=== PATIENT | female | born 1980 | race Caucasian/White ===

== ENCOUNTER 2018-04-17 19:37 | Emergency (ER) | payer MEDICARE, MEDICAID ==
[~2018-04-17] VITALS: Ht 154.9 cm; Wt 77.0 kg
[~2018-04-17 19:37] MED LIST: ONDA4TAB12 PO
[2018-04-17 19:54] VITALS: BP 125/70
[2018-04-17 20:13] LABS: BASOPHILS % (AUTO) 0.5 % (0-1); EOSINOPHILS # (AUTO) 0.2 X10'3 (0-0.9); EOSINOPHILS % (AUTO) 2.4 % (0-6); HEMATOCRIT 38.1 % (35.0-45.0); HEMOGLOBIN 13.1 g/dl (12.0-16.0); MEAN CORPUSCULAR HEMOGLOBIN 30.4 PG (27.0-31.0); MEAN CORPUSCULAR HGB CONC 34.3 % (33.0-36.5); MEAN CORPUSCULAR VOLUME 88.5 FL (78-98); MEAN PLATELET VOLUME 7.9 FL (7.4-10.4); MONOCYTES # (AUTO) 0.8 X10'3 (0-0.9); MONOCYTES % (AUTO) 10.1 % (2-12); NEUTROPHILS # (AUTO) 3.7 X10'3 (1.8-7.7); PLATELET COUNT 283 X10'3 (140-440); RED BLOOD COUNT 4.31 X10'6 (4.20-5.60); RED CELL DISTRIBUTION WIDTH 11.8 % (11.5-14.5); WHITE BLOOD COUNT 7.8 X10'3 (4.5-11.0)
[2018-04-17 20:19] LABS: CLARITY,URINE CLEAR (Clear); COLOR,URINE YELLOW (Yellow); GLUCOSE, URINE NEGATIVE (Neg); KETONES,URINE NEGATIVE (Neg); LEUKOCYTE ESTERASE ,URINE NEGATIVE (Neg); NITRITES, URINE NEGATIVE (Neg); OCCULT BLOOD,URINE NEGATIVE (Neg); PH,URINE 5.5 (4.8-8.0); PROTEIN,URINE NEGATIVE (Neg); UROBILINOGEN,URINE 0.2 E.U/dL (0.2-1.0)
[2018-04-17 20:20] LABS: URINE HCG NEGATIVE (NEG)
[2018-04-17 20:22] LABS: INR 0.9 INR; PROTHROMBIN TIME 9.5 SECONDS (9.0-12.0)
[2018-04-17 20:27] LABS: UA COLLECTION TYPE CLN CATCH MIDSTREAM
[2018-04-17 20:28] LABS: ALANINE AMINOTRANSFERASE 20 U/L (12-78); ALBUMIN 3.5 G/DL (3.4-5.0); ALBUMIN/GLOBULIN RATIO 0.9 (1.1-1.5); ALKALINE PHOSPHATASE 98 IU/L (46-116); ANION GAP 9 (8-16); ASPARTATE AMINO TRANSFERASE 18 U/L (10-37); BILIRUBIN,TOTAL 0.1 MG/DL (0.1-1.0); BLOOD UREA NITROGEN 16 MG/DL (7-18); BUN/CREATININE RATIO 19.3 (6.6-38.0); CALCIUM 8.9 MG/DL (8.5-10.1); CHLORIDE 106 MMOL/L (99-107); CREATININE 0.83 MG/DL (0.40-0.90); GLUCOSE 94 MG/DL (70-104); POTASSIUM 3.7 MMOL/L (3.5-5.1); SODIUM 142 MMOL/L (135-145); TOTAL CARBON DIOXIDE 27.5 MMOL/L (24-32); TOTAL PROTEIN 7.3 G/DL (6.4-8.2); eGFR 77 ML/MIN
== END 2018-04-17 20:52 | disposition home or self-care (01) ==
LOC: ER 19:38
DX: R10.30 Lower abdominal pain, unspecified (principal); Z88.8 Allergy status to other drugs, medicaments and biological substances; Z79.899 Other long term (current) drug therapy
CPT/HCPCS: 36415; 80053; 81003; 81025; 85025; 85610; 87210; 87491; 99284

== ENCOUNTER 2021-02-25 16:21 | Emergency (ER) | payer BC, MEDICAID ==
[~2021-02-25] VITALS: Ht 154.9 cm; Wt 84.1 kg
[2021-02-25] MEDS ORDERED: ampicillin/sulbac 3gm/NS 100ml 100 ML IV STA (20:19)
[2021-02-25] MEDS ORDERED: gentamicin inj 400 MG in normal saline 100ml IV soln 100 ML IV STA (20:19)
[2021-02-25] MEDS ORDERED: normal saline 1000ML IV soln IVB ONE (20:20)
[2021-02-25] MEDS ORDERED: probenecid 500mg tablet PO ONE (20:20)
[2021-02-25] MEDS ORDERED: gentamicin inj 300 MG in normal saline 100ml IV soln 100 ML IV STA (20:28)
[2021-02-25 20:51] LABS: BASOPHILS # (AUTO) 0.1 X10'3 (0-0.2); BASOPHILS % (AUTO) 0.5 % (0-1); EOSINOPHILS # (AUTO) 0.1 X10'3 (0-0.9); EOSINOPHILS % (AUTO) 0.6 % (0-6); HEMATOCRIT 38.3 % (35.0-45.0); HEMOGLOBIN 12.8 g/dl (12.0-16.0); LYMPHOCYTES # (AUTO) 2.7 X10'3 (1.1-4.8); LYMPHOCYTES % (AUTO) 17.6 % (21-51); MEAN CORPUSCULAR HEMOGLOBIN 29.9 PG (27.0-31.0); MEAN CORPUSCULAR HGB CONC 33.5 g/dL (33.0-36.5); MEAN CORPUSCULAR VOLUME 89.3 FL (78-98); MEAN PLATELET VOLUME 7.1 FL (7.4-10.4); MONOCYTES # (AUTO) 0.7 X10'3 (0-0.9); MONOCYTES % (AUTO) 4.9 % (2-12); NEUTROPHILS # (AUTO) 11.5 X10'3 (1.8-7.7); NEUTROPHILS % (AUTO) 76.4 % (42-75); PLATELET COUNT 264 X10'3 (140-440); RED BLOOD COUNT 4.29 X10'6 (4.20-5.60); RED CELL DISTRIBUTION WIDTH 12.7 % (11.5-14.5); WHITE BLOOD COUNT 15.1 X10'3 (4.5-11.0)
[2021-02-25 21:07] LABS: ALANINE AMINOTRANSFERASE 24 U/L (12-78); ALBUMIN 3.6 G/DL (3.4-5.0); ALBUMIN/GLOBULIN RATIO 0.8 (1.1-1.5); ALKALINE PHOSPHATASE 96 IU/L (46-116); ANION GAP 8 (8-16); ASPARTATE AMINO TRANSFERASE 14 U/L (10-37); BILIRUBIN,TOTAL 0.3 MG/DL (0.1-1.0); BLOOD UREA NITROGEN 8 MG/DL (7-18); CALCIUM 8.7 MG/DL (8.5-10.1); CHLORIDE 103 MMOL/L (99-107); CREATININE 0.89 MG/DL (0.40-0.90); GLUCOSE 95 MG/DL (70-104); POTASSIUM 3.9 MMOL/L (3.5-5.1); SODIUM 139 MMOL/L (135-145); TOTAL CARBON DIOXIDE 28.1 MMOL/L (24-32); TOTAL PROTEIN 7.9 G/DL (6.4-8.2); eGFR 70 ML/MIN
[2021-02-25] MEDS ORDERED: ketorolac trometh. 30mg/ml inj. IV ONE (21:15)
--- NOTE | 2021-02-25 22:29 | NUR ---
HAD CONVERSATION WITH DR STONER OVER PT'S TDAP IMMUNIZATION. ADVISED TO ORDER TDAP BOOSTER. ORDER PUT IN.
[2021-02-25] MEDS ORDERED: tetanus & diphtheria toxoid (Td) vaccine 0.5ml IMVAC ONE (22:35)
[2021-02-25] MEDS ORDERED: TETanus/Pertussis (Acell)/Diphther VAC/PF (Tdap-Adult) 0.5ml syringe IMVAC ONE (22:40)
--- NOTE | 2021-02-25 22:54 | NUR ---
TDAP VACCINE BOOSTER GIVEN. MED NOT ABLE TO SCAN. PRINTING EQUIPMENT MECHANIC APPRENTICE AND PHARMACY ADVISED TO CHART MANUALLY. TDAP GIVEN IN RIGHT DELTOID. LOT NUMBER [id number]. EXPIRATION 12/13/2022. PT GIVEN VACCINE EDUCATION AND PAMPHLET. PT VERBALIZED CONSENT.
[2021-02-25 23:22] VITALS: BP 121/75
== END 2021-02-25 22:39 | disposition home or self-care (01) ==
LOC: ER 16:22
DX: L03.114 Cellulitis of left upper limb (principal); F12.90 Cannabis use, unspecified, uncomplicated; Z72.89 Other problems related to lifestyle; Z88.8 Allergy status to other drugs, medicaments and biological substances; Z79.899 Other long term (current) drug therapy
CPT/HCPCS: 36415; 73090; 80053; 84145; 85025; 96361; 96365; 96368; 96375; 99284; J1580; J1885; J7030; 90715; 96367; J0295

== ENCOUNTER 2021-02-26 13:57 | Emergency (ER) | payer BC, MEDICAID ==
[~2021-02-26] VITALS: Ht 154.9 cm; Wt 81.8 kg
[2021-02-26 14:33] VITALS: BP 116/64
[2021-02-26] MEDS ORDERED: gentamicin inj 400 MG in normal saline 100ml IV soln 100 ML IV STA (15:16)
[2021-02-26] MEDS ORDERED: ampicillin/sulbac 3gm/NS 100ml 100 ML IV STA (15:16)
[2021-02-26] MEDS ORDERED: normal saline 1000ML IV soln IVB ONE (15:20)
[2021-02-26] MEDS ORDERED: morphine 4 MG/ML inj SYRINge IV ONE (15:45)
[2021-02-26] MEDS ORDERED: diphenhydrAMINE 50 mg/ml inj IV ONE (15:45)
[2021-02-26 15:54] LABS: BASOPHILS # (AUTO) 0.1 X10'3 (0-0.2); BASOPHILS % (AUTO) 0.5 % (0-1); EOSINOPHILS # (AUTO) 0.1 X10'3 (0-0.9); EOSINOPHILS % (AUTO) 1.1 % (0-6); HEMOGLOBIN 12.3 g/dl (12.0-16.0); LYMPHOCYTES # (AUTO) 2.2 X10'3 (1.1-4.8); LYMPHOCYTES % (AUTO) 20.8 % (21-51); MEAN CORPUSCULAR HEMOGLOBIN 30.1 PG (27.0-31.0); MEAN CORPUSCULAR HGB CONC 33.4 g/dL (33.0-36.5); MEAN CORPUSCULAR VOLUME 90.1 FL (78-98); MEAN PLATELET VOLUME 7.4 FL (7.4-10.4); MONOCYTES # (AUTO) 0.7 X10'3 (0-0.9); MONOCYTES % (AUTO) 6.4 % (2-12); NEUTROPHILS # (AUTO) 7.6 X10'3 (1.8-7.7); NEUTROPHILS % (AUTO) 71.2 % (42-75); PLATELET COUNT 272 X10'3 (140-440); RED CELL DISTRIBUTION WIDTH 13.3 % (11.5-14.5); WHITE BLOOD COUNT 10.7 X10'3 (4.5-11.0)
[2021-02-26] MEDS ORDERED: LIDOcaine 1% W/epiNEPHrine 1:200,000 10ml vial IJ ONE (16:45)
== END 2021-02-26 17:35 | disposition home or self-care (01) ==
LOC: ER 13:58
DX: L03.114 Cellulitis of left upper limb (principal); F15.90 Other stimulant use, unspecified, uncomplicated; Z72.89 Other problems related to lifestyle; Z88.8 Allergy status to other drugs, medicaments and biological substances; Z79.899 Other long term (current) drug therapy
CPT/HCPCS: 10060; 36415; 84145; 85025; 96374; 96375; 99284; J1200; J2270; J7030

== ENCOUNTER 2021-07-15 17:00 | Inpatient (IN) | payer BC, MEDICAID ==
[~2021-07-15] VITALS: Ht 154.9 cm; Wt 83.9 kg
[2021-07-15] MEDS ORDERED: acetaminophen 325mg tablet PO PRN ×2 (20:25)
[2021-07-15] MEDS ORDERED: magnesium hydroxide 30ml (MOM) UD suspension PO PRN (20:25)
[2021-07-15] MEDS ORDERED: loperamide 2mg capsule PO PRN (20:25)
[2021-07-15] MEDS ORDERED: mag hydrox/Alum hydrox/simeth 30ml oral suspension PO PRN (20:25)
[2021-07-15 20:30] VITALS: BP 139/63
[2021-07-15] MEDS ORDERED: PALI234D IM (21:14)
[2021-07-15] MEDS ORDERED: QUET-1 PO (21:14)
[2021-07-15] MEDS ORDERED: POTA-192 PO (21:19)
[2021-07-15] MEDS ORDERED: OSC500T PO (21:19)
[2021-07-15] MEDS ORDERED: quetiapine 100mg tablet PO SCH (21:34)
--- NOTE | 2021-07-16 00:18 | NUR ---
Admission Assesment: Esperanza Legal hold: 5150 Client on involuntary status for GD. Why are they here: Pt was transferred from [facility] after having mild rhabdomyolysis, and Hx of bipolar disorder and schizophrenia disorder. Presents for evaluation of abnormal behavior. Was brought into [facility] by sister who stated that pt was hearing voices, crying, and not talking acknowledges behavior and stated that it has been ongoing for 2-3 days. Pt not caring for self, or eating or drinking No provocation and similar to prior bipolar episodes. Transferred to [facility] on 07/15/21 and arrived on the unit at 20:30 to be placed on 5150 hold for GD. Pt cooperative upon initial greeting, Pt took shower. After shower pt stated that she had in the past tried to hurt herself twice, but has not felt that way recently. Pt also had no plans to harm self or others. Pt stsaed she thinks her medications are off and that she can feel better soon.Pt took Seroquel and went to bed.
[2021-07-16 07:31] VITALS: BP 132/78
[2021-07-16] MEDS ORDERED: calcium carbonate 500mg tablet PO SCH (08:00)
[2021-07-16] MEDS ORDERED: potassium Cl 20 mEq SR tablet PO SCH (08:00)
[2021-07-16 08:23] LABS: HEMOGLOBIN A1C 5.5 % (4.5-6.2)
[2021-07-16 08:27] LABS: CHOL/HDL RATIO 3.3 (0.00-4.99); CHOLESTEROL 131 MG/DL (0-200); HDL CHOLESTEROL 40 MG/DL (35-60); LDL CHOLESTEROL 76 MG/DL (50-100); TRIGLYCERIDES 102 MG/DL (20-135)
--- NOTE | 2021-07-16 10:09 | NUR ---
Malnutrition consult: Pt unsure of wt loss though with decreased appetite per malnutrition risk screen with RN. Current scaled wt is +2.1 kg from 02/26 per EMR. Pt on a regular diet documented with 100% PO intake first meal. No documented edema or decrease in muscle strength. Pt currently lacks a minimum of two criteria for malnutrition. Will continue to follow. Addendum: 07/16/21 at [address] Amended: Links added.
--- NOTE | 2021-07-16 14:21 | NUR ---
Nursing Progress Note: Legal hold: 5150 Client on involuntary status for GD Report received from nurse Bright RN with use of SBAR. Why are they here: Pt was transferred from [facility] after having mild rhabdomyolysis, and Hx of bipolar disorder and schizophrenia disorder. Presents for evaluation of abnormal behavior. Was brought into [facility] by sister who stated that pt was hearing voices, crying, and not talking acknowledges behavior and stated that it has been ongoing for 2-3 days. Pt not caring for self, or eating or drinking. Pt's tox screen was positive for methamphetamines. Pt transferred to [facility] on 07/15/21 and arrived on the unit at 20:30 on 5150 hold for GD. Pt stated she thinks her medications are off and that she can feel better soon. Assessment What has happened this shift: Pt was up for breakfast in the dining room. Pt returned to bed afterwards. Pt c/o 4/10 general pain this morning and was given PRN Tylenol 650 mg at 0758 with some effect. Pt c/o feeling like she has a sinus infection and being congested. She reports that when she blows her nose it's yellow. Pt is irritable. Pt reports, "I feel like crap." Asked pt if she meant physically or mentally or both. Pt replied, "both!" Pt rated her depression at a 10/10. When asked about SI, pt replied, "maybe." When asked if she had thought about a plan of how she would hurt herself she replied, "No...I don't know...no." When asked about AH, pt reported sometimes. When asked if she had heard any voices today she stated, "well I heard D----'s voice and she's not my roommate." Reality orientation provided that D---- actually is her roommate. Pt replied, "oh." When asked about VH, pt replied, "I don't know, I haven't really been out of this bed." Collected and sent MRSA swab as this was endorsed by [facility] shift to day shift to collect. Upon reviewing pt's paper chart. This RN noted that pt had a positive Covid PCR test dated yesterday 07/15/21 at [facility]. Notified band shover of pt's symptoms and positive test result. Further review of [facility] documentation revealed a sentence reporting that pt had tested positive for Covid-19 at [facility] on 06/23/21. Evidently this was per the patient's report. Upon further investigation, it was determined through public michelle that her test result on 06/23/21 was actually negative. The director, the nursing supervisor quilting, the doctor, and the infection control nurse notified of the situation. Pt was moved to a private room and placed on respiratory isolation precautions, an isolation cart was placed outside her room. Pt wore a mask during the changing of her room. Her old room was disinfected by EVS. A PAPR was acquired for [facility] staff to share. Pt was afebrile this morning, her lungs were clear. VS: 98.6 temporal, 96, 17, 132/78, and 96% RA. S/I, H/I: Pt denies HI, evasive/wishy-washy in her response to SI questions. A/VH: Pt denies Sleep:Pt slept 7.25 hours last night per [facility] shift report. ADL's: Independent Group attendance: No Were meds taken: Only K-Dur and Oscal scheduled this morning. Any med S/E: N/A. Mental Status Exam Appearance: Fair skinned woman with freckles and long light brown hair dressed in unit scrubs. Eye contact: Fair Behavior: Cooperative, mostly isolative to self. Speech: Clear, audible, normal rate & rhythm. Mood: Irritable, depressed. Affect: Irritable Thought process: Difficulty focusing, mild disorganization. Thought Content: She feels like crap. Cognition: A/O X 3 Insight: Poor Judgment: Poor Interventions PRN's used: None Therapeutic interventions: 1:1 assessment, establishment of rapport, therapeutic communication, active listening, ensured contract for safety, initiated isolation precautions for Covid-19, educated pt to remain in her room, provided encouragement and positive reinforcement. Restraints/seclusion/emergency medication: N/A Justification of Continued Inpatient Treatment: Pt required crisis interruption and stabilization as well as medication management and monitoring in a safe and therapeutic environment until stable.
--- NOTE | 2021-07-16 15:18 | NUR ---
DISCHARGE PLAN Met with Esperanza to discuss her going home since she has Covid and is symptomatic. She reported she would like to go home. She denied any current SI or HI. She was alert and oriented. Speech was coherent and absent of any obvious delusions or paranoia. After a couple phone calls was able to speak to her , Tunde (ph# [phone]). Apprised him of the situation and he reported he can come pick her up so she can quarantine at home. He reported feeling comfortable bringing her home. Encouraged him to bring her back to the ER if psychotic symptoms persist or re-present. Scheduled follow up at [facility] for 07/30/21. Called Tunde back and informed him of follow up and that the nursing staff will call him when Esperanza is ready for discharge. Informed Esperanza of this as well and she was agreeable to the plan. BHAVYA Major
[2021-07-16] MEDS ORDERED: paliperidone palmitate inj 234 MG/1.5 ML SYRINGE IM ONE (15:50)
[2021-07-16] MEDS ORDERED: paliperidone palmitate inj 234 MG/1.5 ML SYRINGE IM SCH (15:51)
--- NOTE | 2021-07-16 17:27 | NUR ---
Pt was given Invega Sustenna 243 mg IM injection by the transmitter engineer in charge. The plan is for pt to discharge home this evening.
--- NOTE | 2021-07-16 19:45 | NUR ---
Pt discharged at this time to care of , discharge instructions reviewed including medications, and follow up with [facility] on 07/30/21, verbalized understanding. Also instructed him about pts positive Covid test and symptoms and s/s to watch for and when to seek medical attention. All patients belongings were returned and pt was walked off the unit wearing an N95 mask. Pt remained tearful and was reporting having a hard time with her voices and feeling scared. I tried to reassure patient and told her that she did receive her Invega shot today which should help with her voices and if she continues to have issues to contact [facility]. and patient verbalized understanding.
== END 2021-07-16 19:45 | disposition home or self-care (01) | DRG 885 ==
LOC: ADULT MH 17:00
PROVIDERS: ADMIT Psychiatry & Neurology Psychiatry; ATTEND Psychiatry & Neurology Psychiatry
DX: F25.9 Schizoaffective disorder, unspecified (principal); F32.A Depression, unspecified; F43.12 Post-traumatic stress disorder, chronic; F15.10 Other stimulant abuse, uncomplicated; Z91.14 Patient's other noncompliance with medication regimen; Z91.410 Personal history of adult physical and sexual abuse; Z91.51 Personal history of suicidal behavior; Z88.8 Allergy status to other drugs, medicaments and biological substances; Z56.0 Unemployment, unspecified; Z79.899 Other long term (current) drug therapy
CPT/HCPCS: 36415; 80061; 83036; 87081

== ENCOUNTER 2021-07-21 09:57 | Inpatient (IN) | payer BC, MEDICAID ==
[~2021-07-21] VITALS: Ht 154.9 cm; Wt 88.8 kg
[~2021-07-21 09:57] MED LIST changes: -ONDA4TAB12 PO; +OSC500T PO; +PALI234D IM; +POTA-192 PO; +QUET-1 PO
[2021-07-21 10:29] LABS: URINE HCG NEGATIVE (NEG)
[2021-07-21 10:36] LABS: COLOR,URINE YELLOW (Yellow); UA COLLECTION TYPE CLN CATCH MIDSTREAM
[2021-07-21 10:37] LABS: CLARITY,URINE CLOUDY (Clear); GLUCOSE, URINE NEGATIVE (Neg); KETONES,URINE NEGATIVE (Neg); PROTEIN,URINE NEGATIVE (Neg)
[2021-07-21 10:38] LABS: LEUKOCYTE ESTERASE ,URINE TRACE (Neg); NITRITES, URINE NEGATIVE (Neg); OCCULT BLOOD,URINE NEGATIVE (Neg); UROBILINOGEN,URINE 0.2 E.U/dL (0.2-1.0)
[2021-07-21 10:43] LABS: BACTERIA,URINE 4+ /HPF (Neg); MUCUS STRANDS MANY /LPF (Neg); SQUAMOUS EPITHELIAL CELL,UR MANY /LPF (FEW); TRANSITIONAL EPI CELLS,URINE FEW /HPF; URINE AMPHETAMINE SCREEN NEGATIVE (Neg); URINE BARBITUATE SCREEN NEGATIVE (Neg); URINE BENZODIAZEPINES SCREEN NEGATIVE (Neg); URINE CANNABINOID SCREEN NEGATIVE (Neg); URINE COCAINE SCREEN NEGATIVE (Neg); URINE METHADONE SCREEN NEGATIVE (Neg); URINE OPIATE SCREEN NEGATIVE (Neg); URINE PHENCYCLIDINE SCREEN NEGATIVE (Neg)
[2021-07-21 10:45] LABS: RBC,URINE 0-2 /HPF (0-2)
--- NOTE | 2021-07-21 10:52 | NUR ---
Pt ambulated independently to bed #20 from Triage. Admit time was 1020. Pt was changed into green scrubs, labs/urine obtained. Pt calm and cooperative.
[2021-07-21 10:53] LABS: BASOPHILS % (AUTO) 0.4 % (0-1); EOSINOPHILS % (AUTO) 0.5 % (0-6); HEMATOCRIT 37.1 % (35.0-45.0); HEMOGLOBIN 12.5 g/dl (12.0-16.0); LYMPHOCYTES # (AUTO) 1.8 X10'3 (1.1-4.8); LYMPHOCYTES % (AUTO) 22.3 % (21-51); MEAN CORPUSCULAR HEMOGLOBIN 29.7 PG (27.0-31.0); MEAN CORPUSCULAR HGB CONC 33.6 g/dL (33.0-36.5); MEAN CORPUSCULAR VOLUME 88.4 FL (78-98); MEAN PLATELET VOLUME 7.8 FL (7.4-10.4); MONOCYTES # (AUTO) 0.5 X10'3 (0-0.9); MONOCYTES % (AUTO) 5.9 % (2-12); NEUTROPHILS # (AUTO) 5.8 X10'3 (1.8-7.7); NEUTROPHILS % (AUTO) 70.9 % (42-75); PLATELET COUNT 261 X10'3 (140-440); RED CELL DISTRIBUTION WIDTH 13.4 % (11.5-14.5); WHITE BLOOD COUNT 8.1 X10'3 (4.5-11.0)
[2021-07-21 11:05] LABS: ALANINE AMINOTRANSFERASE 31 U/L (12-78); ALBUMIN 3.3 G/DL (3.4-5.0); ALBUMIN/GLOBULIN RATIO 0.9 (1.1-1.5); ALKALINE PHOSPHATASE 61 IU/L (46-116); ANION GAP 12 (8-16); ASPARTATE AMINO TRANSFERASE 19 U/L (10-37); BILIRUBIN,TOTAL 0.3 MG/DL (0.1-1.0); BLOOD UREA NITROGEN 8 MG/DL (7-18); BUN/CREATININE RATIO 10.1 (6.6-38.0); CALCIUM 8.2 MG/DL (8.5-10.1); CHLORIDE 107 MMOL/L (99-107); CREATININE 0.79 MG/DL (0.40-0.90); GLUCOSE 128 MG/DL (70-104); POTASSIUM 3.4 MMOL/L (3.5-5.1); SODIUM 143 MMOL/L (135-145); TOTAL PROTEIN 7.1 G/DL (6.4-8.2); eGFR 80 ML/MIN
[2021-07-21 11:15] LABS: ETHANOL < 0.010 GM/DL (0.0-0.010)
--- NOTE | 2021-07-21 11:20 | NUR ---
PACKET FAXED TO [facility]
--- NOTE | 2021-07-21 11:25 | NUR ---
Pt lying in bed on right side. Pt was compliant with admit process, answered questions appropriately. Pt endorses auditory hallucinations "they aren't just voices, there is all kinds of noises." Some visual hallucinations not currently. Pt was tearful "are you going to help me." Pt is A&Ox4. Pt remained calm throughout assessment. No somatic complaints.
--- NOTE | 2021-07-21 11:55 | NUR ---
Patient was recently admitted to [facility] from [facility] on 07/15/21. Pt was discharged to [facility] on 07/16 r/t + COVID PRC from [facility] on 07/15 (See nurse note dated 07/15). Pt became symptomatic. Pt's quarantine is not up until 07/25. Notified BETH Durand. Pt will be moved back to main ER.
--- NOTE | 2021-07-21 12:02 | NUR ---
Pt received Invega Sustenna injection on 07/16 234 mg. Pt has a follow up with [facility] on 07/30/21.
[2021-07-21] MEDS ORDERED: cephalexin 500mg capsule PO ONE (20:00)
[2021-07-22] MEDS: QUEtiapine 25mg tablet PO PRN (23:40)
--- NOTE | 2021-07-23 06:53 | NUR ---
pt sleeping in lft lateral position RR wnl ,no distress noted.will cont to monitor.
--- NOTE | 2021-07-24 14:34 | NUR ---
[facility] AT BEDSIDE FOR RE-EVALUATION
[2021-07-24] MEDS: QUEtiapine 25mg tablet PO PRN (22:17)
--- NOTE | 2021-07-25 04:45 | NUR ---
pt moved to bed 22. pt's isolation status ended today
--- NOTE | 2021-07-25 07:04 | NUR ---
Patient resting on right side, no signs of distress
--- NOTE | 2021-07-25 08:53 | NUR ---
Patient ate 100% of breakfast, patient ambulated to restroom and retreated back to bed, laying on right side no s/s of distress
--- NOTE | 2021-07-25 10:56 | NUR ---
Patient resting on left side, after interview denies any new problems.
--- NOTE | 2021-07-25 11:00 | NUR ---
During morning interview and assesment, patient states she is still suicidal and states if she was left alone here in the er she would try to harm herself. "I am not sure what I waould do". Patient does desire visitors but is unsure if her family knows she is her. Patient affect is flat with no forward thinking.
--- NOTE | 2021-07-25 14:41 | NUR ---
[facility] called accepted at [facility]
--- NOTE | 2021-07-25 14:47 | NUR ---
Patietn with admission tech finishing paper work for admit
--- NOTE | 2021-07-25 15:48 | NUR ---
[facility] has given 2nd [facility] sample
[2021-07-25 16:24] LABS: CLARITY,URINE CLOUDY (Clear); COLOR,URINE YELLOW (Yellow); GLUCOSE, URINE NEGATIVE (Neg); KETONES,URINE NEGATIVE (Neg); LEUKOCYTE ESTERASE ,URINE NEGATIVE (Neg); NITRITES, URINE NEGATIVE (Neg); OCCULT BLOOD,URINE NEGATIVE (Neg); PROTEIN,URINE NEGATIVE (Neg); UA COLLECTION TYPE CLN CATCH MIDSTREAM; UROBILINOGEN,URINE 0.2 E.U/dL (0.2-1.0)
--- NOTE | 2021-07-25 16:36 | NUR ---
1940 Patient taken to [facility] for stabilization
[2021-07-25 16:40] LABS: BACTERIA,URINE 3+ /HPF (Neg); MUCUS STRANDS MANY /LPF (Neg); SQUAMOUS EPITHELIAL CELL,UR MANY /LPF (FEW)
[2021-07-25 16:42] LABS: RBC,URINE 0-2 /HPF (0-2); WBC,URINE 0-4 /HPF (0-4)
[2021-07-25] MEDS ORDERED: acetaminophen 325mg tablet PO PRN ×2 (16:45)
[2021-07-25] MEDS ORDERED: mag hydrox/Alum hydrox/simeth 30ml oral suspension PO PRN (16:45)
[2021-07-25] MEDS ORDERED: magnesium hydroxide 30ml (MOM) UD suspension PO PRN (16:45)
[2021-07-25] MEDS ORDERED: loperamide 2mg capsule PO PRN (16:45)
[2021-07-25 16:50] VITALS: BP 117/73
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
[2021-07-25] MEDS: LORazepam 1 MG tablet PO PRN (18:42)
[2021-07-25 20:00] VITALS: BP 117/80
[2021-07-25] MEDS: calcium carbonate 500mg tablet PO SCH (20:21)
[2021-07-25] MEDS ORDERED: quetiapine 100mg tablet PO SCH ×2 (21:00)
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
[2021-07-26 07:16] VITALS: BP 119/71
[2021-07-26] MEDS: calcium carbonate 500mg tablet PO SCH ×2 (08:11→20:19)
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
[2021-07-26 19:00] VITALS: BP 107/72
[2021-07-26] MEDS: docusate sod 100mg capsule PO SCH (20:17)
[2021-07-26] MEDS: prazosin 1mg capsule PO SCH (20:20)
[2021-07-26] MEDS: olanzapine 10mg tablet PO SCH (20:20)
[2021-07-26] MEDS: traZODone 50mg tablet PO SCH (20:21)
[2021-07-26 20:22] VITALS: BP 122/84
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
[2021-07-27] MEDS: docusate sod 100mg capsule PO SCH ×2 (08:23→20:29)
[2021-07-27] MEDS: calcium carbonate 500mg tablet PO SCH ×2 (08:23→20:27)
[2021-07-27 08:57] VITALS: BP 109/71
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
[2021-07-27 19:21] VITALS: BP_SYST 64
[2021-07-27] MEDS: traZODone 50mg tablet PO SCH (20:26)
[2021-07-27] MEDS: prazosin 1mg capsule PO SCH (20:26)
[2021-07-27] MEDS: olanzapine 10mg tablet PO SCH (20:27)
[2021-07-27] MEDS: LORazepam 1 MG tablet PO PRN (20:27)
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
[2021-07-28] MEDS: docusate sod 100mg capsule PO SCH ×2 (07:46→20:26)
[2021-07-28] MEDS: calcium carbonate 500mg tablet PO SCH ×2 (07:47→20:27)
[2021-07-28 08:00] VITALS: BP 117/69
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
[2021-07-28 20:11] VITALS: BP 115/74
[2021-07-28] MEDS: traZODone 50mg tablet PO SCH (20:27)
[2021-07-28] MEDS: prazosin 1mg capsule PO SCH (20:27)
[2021-07-28] MEDS: olanzapine 10mg tablet PO SCH (20:28)
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
[2021-07-29] MEDS: docusate sod 100mg capsule PO SCH ×2 (07:41→20:09)
[2021-07-29] MEDS: calcium carbonate 500mg tablet PO SCH ×2 (07:41→20:09)
--- NOTE | 2021-07-29 07:48 | NUR ---
Initial: Pt admitted for suicidal ideations per EMR. Pt currently on Regular diet w/ mostly 100% intake of meals meeting needs. [facility] 07/27 receiving routine colace. No nutrition intervention implemented at this time, will continue to monitor. Recs: 1. Continue Regular diet as tolerated 2. Bowel care per rx 3. Weekly wts Addendum: 07/29/21 at [address] Amended: Links added.
[2021-07-29 08:00] VITALS: BP 110/77
--- NOTE | 2021-07-29 15:11 | NUR ---
Pt. attended group today. Todays group was about the difference between Growth Mindset vs. Fixed Mindset. We learned about the differences and then discussed what aspect of developing a growth mindset they wanted to work on. Pt. engaged in the group. She was very emotional in the group and cried a few times reporting that she is upset because she feels she needs to leave her but then will have no where to live. She was able to listen to the topic and interact with it. She engaged in the activity and shared what she was holding onto and what she was letting go of. She became tearful at this part of the group as well. She asked for a journal with this Cutting And Boning Supervisor was able to provide for her and encouraged her to write out some of these feelings she was having in her journal. She was appreciative of the journal. Her mood was sad with a labile affect. Her thought content and thought process was WNL. Ruthy Andrews LCSW
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
--- NOTE | 2021-07-29 17:44 | NUR ---
Group Art Tx, Continued: Patient was motivated to remain in group for the entire session. This was her first art therapy group. Patient was able to follow all directives, however she did not feel comfortable sharing or verbalizing what her drawing and writing expressed. Her basic theme focused on pain and suffering. She left group quietly, folding her paper in half as if to say, "I am not open to sharing or being seen right now." She remained pleasant and respectful of others. * Please refer to the group notes in [facility] for an overall report. Elizabeth Alvarado MA, [facility] #[id number] [facility]-Art Therapist Addendum: 07/29/21 at 1745 by Elizabeth Alvarado SS Amended: Links added.
[2021-07-29] MEDS: LORazepam 1 MG tablet PO PRN (18:36)
[2021-07-29] MEDS: traZODone 50mg tablet PO SCH (20:09)
[2021-07-29] MEDS: prazosin 1mg capsule PO SCH (20:09)
[2021-07-29] MEDS: OLANZAPINE 5 MG TABLET PO SCH (20:11)
[2021-07-29 20:32] VITALS: BP 121/82
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
[2021-07-30 07:40] VITALS: BP 113/74
[2021-07-30] MEDS: docusate sod 100mg capsule PO SCH ×2 (08:03→20:25)
[2021-07-30] MEDS: calcium carbonate 500mg tablet PO SCH ×2 (08:03→20:25)
[2021-07-30] MEDS: LORazepam 1 MG tablet PO PRN (15:17)
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
[2021-07-30 20:00] VITALS: BP 120/77
[2021-07-30] MEDS: prazosin 1mg capsule PO SCH (20:24)
[2021-07-30] MEDS: traZODone 50mg tablet PO SCH (20:25)
[2021-07-30] MEDS: OLANZAPINE 5 MG TABLET PO SCH (20:26)
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
[2021-07-31] MEDS: ESCITALOPRAM OXALATE 5 MG TABLET PO SCH (07:33)
[2021-07-31] MEDS: docusate sod 100mg capsule PO SCH ×2 (07:33→20:00)
[2021-07-31] MEDS: calcium carbonate 500mg tablet PO SCH ×2 (07:33→20:42)
[2021-07-31 08:00] VITALS: BP 105/60
[2021-07-31] MEDS: LORazepam 1 MG tablet PO PRN ×2 (12:10→20:44)
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
--- NOTE | 2021-07-31 18:52 | NUR ---
Group Art Tx, Continued: Patient entered the art therapy session after the group had been in process for approximately 45 minutes. Patient was able to understand the exercise and did identify and draw out her feeling opposites. Her piece was expressed using colors/words that reflected her feelings. Her ability to fully identify and feel her feelings was restricted. Patient remained pleasant yet choose to keep her sharing to herself during the group process. This therapist was encouraged to work 1:1 which was discussed. The patient agreed that waiting until the next week would be the best plan for her. Elizabeth Alvarado MA, [facility] #[id number] [facility]-Art Therapist Addendum: 07/31/21 at 1855 by Elizabeth Alvarado SS Amended: Links added.
[2021-07-31 19:36] VITALS: BP 123/71
[2021-07-31] MEDS: OLANZAPINE 5 MG TABLET PO SCH (20:42)
[2021-07-31] MEDS: prazosin 1mg capsule PO SCH (20:43)
[2021-07-31] MEDS: traZODone 50mg tablet PO SCH (20:43)
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
[2021-08-01] MEDS: ESCITALOPRAM OXALATE 5 MG TABLET PO SCH (07:57)
[2021-08-01] MEDS: calcium carbonate 500mg tablet PO SCH ×2 (07:57→20:08)
[2021-08-01] MEDS: docusate sod 100mg capsule PO SCH ×2 (07:58→20:09)
[2021-08-01 08:29] VITALS: BP 106/78
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
[2021-08-01 19:00] VITALS: BP 145/99
[2021-08-01] MEDS: LORazepam 1 MG tablet PO PRN (19:03)
[2021-08-01] MEDS: traZODone 50mg tablet PO SCH (20:09)
[2021-08-01] MEDS: prazosin 1mg capsule PO SCH (20:09)
[2021-08-01] MEDS: olanzapine 10mg tablet PO SCH (20:09)
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
[2021-08-02] MEDS: ESCITALOPRAM OXALATE 5 MG TABLET PO SCH (07:43)
[2021-08-02] MEDS: docusate sod 100mg capsule PO SCH ×2 (07:43→20:26)
[2021-08-02] MEDS: calcium carbonate 500mg tablet PO SCH ×2 (07:43→20:26)
[2021-08-02 08:43] VITALS: BP 111/67
[2021-08-02] MEDS ORDERED: olanzapine 10mg tablet PO PRN (16:40)
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
[2021-08-02 19:00] VITALS: BP 121/74
[2021-08-02] MEDS: prazosin 1mg capsule PO SCH (20:26)
[2021-08-02] MEDS: olanzapine 10mg tablet PO SCH (20:26)
[2021-08-02] MEDS: LORazepam 1 MG tablet PO PRN (20:26)
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
[2021-08-03 08:00] VITALS: BP 113/69
[2021-08-03] MEDS: ESCITALOPRAM OXALATE 5 MG TABLET PO SCH (08:17)
[2021-08-03] MEDS: docusate sod 100mg capsule PO SCH ×2 (08:17→20:10)
[2021-08-03] MEDS: calcium carbonate 500mg tablet PO SCH ×2 (08:17→20:10)
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
[2021-08-03] MEDS: LORazepam 1 MG tablet PO PRN (19:00)
[2021-08-03 19:59] VITALS: BP 126/75
[2021-08-03] MEDS: prazosin 1mg capsule PO SCH (20:10)
[2021-08-03] MEDS: olanzapine 10mg tablet PO SCH (20:10)
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
[2021-08-04 08:00] VITALS: BP 108/71
[2021-08-04] MEDS: docusate sod 100mg capsule PO SCH ×2 (08:00→19:51)
[2021-08-04] MEDS: ESCITALOPRAM OXALATE 5 MG TABLET PO SCH (08:31)
[2021-08-04] MEDS: calcium carbonate 500mg tablet PO SCH ×2 (08:31→19:51)
--- NOTE | 2021-08-04 15:21 | NUR ---
Pt. attended group today. We talked about how we all look at the world differently due to our core beliefs. These core beliefs then inform thoughts and behaviors. Each pt. identified one negative core belief and then wrote out three truths that contradict their negative beliefs to work on thinking differently. Pt. engaged well in the group today. She shared that a negative core belief she struggles with is not feeling good enough. She reported that this manifests in the way she gets involved in situations that are harmful to her. She was able to say "I am enough" as a positive core belief. She was alert and oriented X 4. Her thought content and thought process was WNL. Her mood was depressive with a labile affect. She shared that she is feeling worried about her future and unsure of current relationship with her . She became tearful about this. Ruthy Andrews, [facility] [place]
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
[2021-08-04] MEDS: LORazepam 1 MG tablet PO PRN (18:39)
[2021-08-04 19:04] VITALS: BP 119/72
[2021-08-04] MEDS: olanzapine 10mg tablet PO SCH (20:00)
[2021-08-04] MEDS: prazosin 1mg capsule PO SCH (20:00)
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
[2021-08-05] MEDS: ESCITALOPRAM OXALATE 5 MG TABLET PO SCH (07:51)
[2021-08-05] MEDS: calcium carbonate 500mg tablet PO SCH ×2 (07:51→19:58)
[2021-08-05 08:00] VITALS: BP 125/79
[2021-08-05] MEDS: docusate sod 100mg capsule PO SCH ×2 (08:00→19:58)
--- NOTE | 2021-08-05 09:14 | NUR ---
Reassessment: Pt continues eating well with 75-100% PO intake on regular diet. Pt participating in snacks per nib finisher. [facility] 08/03, receiving routine bowel care BID. No nutrition intervention implemented at this time. Will continue to follow. Recommendations: 1. Continue regular diet 2. Routine bowel care 3. Weekly scaled wts Addendum: 08/05/21 at [address] Amended: Links added.
--- NOTE | 2021-08-05 10:48 | NUR ---
DISCHARGE PLANNING Met with Esperanza to discuss her discharge plan. She reported she plans on staying with her mom who lives in [place] upon discharge. She reported her mom is agreeable to this plan. She reported she is still hearing voices. When asked if she had thoughts about harming herself she stated, "víctor", and then later denied SI. She reported she will follow up with [facility] upon discharge. BHAVYA Major
[2021-08-05] MEDS: LORazepam 1 MG tablet PO PRN ×2 (12:11→19:09)
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
[2021-08-05 20:00] VITALS: BP 112/76
[2021-08-05] MEDS: prazosin 1mg capsule PO SCH (20:00)
[2021-08-05] MEDS: olanzapine 10mg tablet PO SCH (20:00)
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
[2021-08-06 08:00] VITALS: BP 108/73
[2021-08-06] MEDS: calcium carbonate 500mg tablet PO SCH ×2 (09:16→20:25)
[2021-08-06] MEDS: docusate sod 100mg capsule PO SCH ×2 (09:16→20:25)
[2021-08-06] MEDS: ESCITALOPRAM OXALATE 5 MG TABLET PO SCH (09:16)
[2021-08-06] MEDS: LORazepam 1 MG tablet PO PRN ×2 (13:01→19:02)
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
[2021-08-06 20:00] VITALS: BP 136/82
[2021-08-06] MEDS: prazosin 1mg capsule PO SCH (20:25)
[2021-08-06] MEDS: olanzapine 10mg tablet PO SCH (20:25)
[2021-08-06] MEDS: temazepam 15mg capsule PO PRN (20:29)
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
[2021-08-07 07:22] VITALS: BP 115/70
[2021-08-07] MEDS: docusate sod 100mg capsule PO SCH ×2 (07:51→20:23)
[2021-08-07] MEDS: ESCITALOPRAM OXALATE 5 MG TABLET PO SCH (07:51)
[2021-08-07] MEDS: calcium carbonate 500mg tablet PO SCH ×2 (07:51→20:23)
[2021-08-07] MEDS ORDERED: COVID-19 VACC, MRNA(PFIZER)/PF--BNT162b2 syringe IMVAC ONE (09:00)
[2021-08-07] MEDS: LORazepam 1 MG tablet PO PRN ×2 (12:08→18:59)
--- NOTE | 2021-08-07 13:50 | NUR ---
DISCHARGE PLAN Esperanza is going to discharge tomorrow. She will be staying with her mother in [place]. She has a follow up scheduled with [facility] for next week. [facility] office can transport her to her mom's apartment. BHAVYA Major
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
[2021-08-07] MEDS: NICOTINE POLACRILEX 2 MG LOZENGE BC PRN (19:09)
[2021-08-07 20:00] VITALS: BP 118/78
[2021-08-07] MEDS: olanzapine 10mg tablet PO SCH (20:23)
[2021-08-07] MEDS: prazosin 1mg capsule PO SCH (20:23)
[2021-08-07] MEDS: temazepam 15mg capsule PO PRN (20:23)
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
[2021-08-08] MEDS: calcium carbonate 500mg tablet PO SCH (07:10)
[2021-08-08] MEDS: ESCITALOPRAM OXALATE 5 MG TABLET PO SCH (07:10)
[2021-08-08] MEDS: docusate sod 100mg capsule PO SCH (07:10)
[2021-08-08 08:11] VITALS: BP 121/76
[2021-08-08] MEDS: LORazepam 1 MG tablet PO PRN (10:18)
[2021-08-08] MEDS ORDERED: ibuprofen 200mg tablet PO ONE (11:05)
[2021-08-08] MEDS: NICOTINE POLACRILEX 2 MG LOZENGE BC PRN (11:50)
[2021-08-08] MEDS ORDERED: TEMA15CA5 PO (11:53)
[2021-08-08] MEDS ORDERED: PRAZ1CAP5 PO (11:53)
[2021-08-08] MEDS ORDERED: ESCI20TA39 PO (11:53)
[2021-08-08] MEDS ORDERED: OLAN10TA73 PO (11:53)
[2021-08-08] MEDS ORDERED: ATI1T PO (12:45)
--- NOTE | 2021-08-08 13:10 | NUR ---
Discharge Note: Paperwork and follow up plan reviewed with the patient who is agreeable to discharge home to self-care. Patient states she will be staying with her mom for a while. States, Im excited to see my mom and my dog. Prescriptions sent to [facility] [address] as patients pharmacy of choice. Escorted off of the unit by staff with all of her belongings at 13:05 and is picked up by the [facility] local truck driver. Discharged with the following instructions: Follow-Up: Patient has been scheduled/referred to the following providers for post-hospital discharge and aftercare treatment. Psychiatrist: Appointment 08/12/21 at 2:[address] [facility] [address] [place], [place] Phone# [phone] Therapist: You can request a therapist at your appointment with [facility] Address: [address] [place] [address] [address] [place], [place] Transportation: [facility] Patient given community crisis services information and National suicide hotline handout. Resources for education regarding mental illness: [address] [address] For urgent mental health crisis needs please contact Mobile Crisis Outreach Team Wednesday through Wednesday 8:30am to 5:00pm. . Mobile Crisis Outreach Team [address] [place] [phone] Urgent Out-patient Mental Health Services 365 Days A Year: [facility] [address] [place] [id number] Hours: Mon thru Fri 12pm-9pm Weekends 11am-9pm
[2021-08-15] MEDS ORDERED: paliperidone palmitate inj 234 MG/1.5 ML SYRINGE IM SCH (10:00)
== END 2021-08-08 13:05 | disposition home or self-care (01) | DRG 885 ==
LOC: ER 09:58 → ED HOLD 07-25 14:35 → ADULT MH 07-25 16:35
PROVIDERS: ADMIT Psychiatry & Neurology Psychiatry; ATTEND Psychiatry & Neurology Psychiatry
DX: F25.9 Schizoaffective disorder, unspecified (principal); N39.0 Urinary tract infection, site not specified; R45.851 Suicidal ideations; F43.10 Post-traumatic stress disorder, unspecified; K59.00 Constipation, unspecified; Z20.822 Contact with and (suspected) exposure to COVID-19; Z82.5 Family history of asthma and other chronic lower respiratory diseases; Z86.16 Personal history of COVID-19; Z91.51 Personal history of suicidal behavior; Z88.8 Allergy status to other drugs, medicaments and biological substances
CPT/HCPCS: 0002A; 36415; 80053; 80305; 80320; 81001; 81025; 84443; 85025; 87081; 87635; 91300; 99285; C9803

== ENCOUNTER 2021-10-09 14:14 | Emergency (ER) | payer BC, MEDICAID ==
[~2021-10-09] VITALS: Ht 154.9 cm; Wt 86.4 kg
[~2021-10-09 14:14] MED LIST changes: +ATI1T PO; +ESCI20TA39 PO; +OLAN10TA73 PO; -PALI234D IM; -POTA-192 PO; +PRAZ1CAP5 PO; -QUET-1 PO; +TEMA15CA5 PO
[2021-10-09 15:25] LABS: BASOPHILS % (AUTO) 0.4 % (0-1); EOSINOPHILS # (AUTO) 0.1 X10'3 (0-0.9); EOSINOPHILS % (AUTO) 0.7 % (0-6); HEMATOCRIT 39.9 % (35.0-45.0); HEMOGLOBIN 13.5 g/dl (12.0-16.0); LYMPHOCYTES # (AUTO) 1.9 X10'3 (1.1-4.8); LYMPHOCYTES % (AUTO) 26.8 % (21-51); MEAN CORPUSCULAR HEMOGLOBIN 29.8 PG (27.0-31.0); MEAN CORPUSCULAR HGB CONC 33.9 g/dL (33.0-36.5); MEAN CORPUSCULAR VOLUME 87.8 FL (78-98); MEAN PLATELET VOLUME 7.4 FL (7.4-10.4); MONOCYTES # (AUTO) 0.5 X10'3 (0-0.9); MONOCYTES % (AUTO) 6.9 % (2-12); NEUTROPHILS # (AUTO) 4.7 X10'3 (1.8-7.7); NEUTROPHILS % (AUTO) 65.2 % (42-75); PLATELET COUNT 292 X10'3 (140-440); RED BLOOD COUNT 4.55 X10'6 (4.20-5.60); RED CELL DISTRIBUTION WIDTH 12.9 % (11.5-14.5); WHITE BLOOD COUNT 7.2 X10'3 (4.5-11.0)
[2021-10-09 15:29] LABS: ALANINE AMINOTRANSFERASE 27 U/L (12-78); ALBUMIN 3.6 G/DL (3.4-5.0); ALBUMIN/GLOBULIN RATIO 0.9 (1.1-1.5); ALKALINE PHOSPHATASE 83 IU/L (46-116); ANION GAP 5 (8-16); ASPARTATE AMINO TRANSFERASE 16 U/L (10-37); BILIRUBIN,TOTAL 0.2 MG/DL (0.1-1.0); BLOOD UREA NITROGEN 13 MG/DL (7-18); CALCIUM 8.6 MG/DL (8.5-10.1); CHLORIDE 108 MMOL/L (99-107); CREATININE 0.65 MG/DL (0.40-0.90); GLUCOSE 100 MG/DL (70-104); POTASSIUM 4.1 MMOL/L (3.5-5.1); SODIUM 140 MMOL/L (135-145); TOTAL CARBON DIOXIDE 27.3 MMOL/L (24-32); TOTAL PROTEIN 7.7 G/DL (6.4-8.2); eGFR > 90 ML/MIN
--- NOTE | 2021-10-09 15:35 | NUR ---
Pt. received from Main ER to Overflow unit. Pt. ambulated with steady gait onto the unit accompanied by Main ER nurse. Pt. placed in bed #24. Pt. assessment completed. Pt. visible on the unit will continue to monitor for safety.
[2021-10-09 15:37] LABS: ETHANOL < 0.010 GM/DL (0.0-0.010)
[2021-10-09] MEDS ORDERED: QUET50TA PO (17:15)
[2021-10-09] MEDS ORDERED: ESCI20TA PO (17:15)
[2021-10-09] MEDS ORDERED: PRAZ2CAP2 PO (17:15)
[2021-10-09] MEDS ORDERED: OLAN20TA3 PO (17:15)
[2021-10-09] MEDS ORDERED: LORA-269 PO (17:15)
--- NOTE | 2021-10-09 17:22 | NUR ---
Pt. visible on the unit lying in bed resting. No distress noted. Staff will continue to monitor for safety.
[2021-10-09] MEDS ORDERED: LORazepam 0.5 MG tablet PO PRN (17:40)
--- NOTE | 2021-10-09 18:40 | NUR ---
Patient received lying in left lateral position in no obvious distress. No complant voiced. Breathing spontanously on room air. Breathe sound adequeate and clear in all lung field. Patient states that she is having audiotary and visual hallucinations, she states that the voicves are calling her name. Patient states that she doesnt want to go home. She rates her anxiety a 10/10 and her depression 810. Patient states that she is having suicidal ideation with no specific plan .
[2021-10-09] MEDS: prazosin 1mg capsule PO SCH (20:01)
[2021-10-09] MEDS: olanzapine 10mg tablet PO SCH (20:02)
[2021-10-09] MEDS: QUEtiapine 25mg tablet PO SCH (20:04)
--- NOTE | 2021-10-09 20:14 | NUR ---
Patient was giving PO Ativan 0.5 mg for anxiety
--- NOTE | 2021-10-09 23:01 | NUR ---
Patient is asleep but easily arouse ,in no obvious distress. Breathing spontanousy on room air. Continue monitor
--- NOTE | 2021-10-10 02:26 | NUR ---
Patient asleep but easily arouse. Patient is still staying she doesnt want to pass urine. Patient was encourage to drink fluid.
--- NOTE | 2021-10-10 05:38 | NUR ---
Patient asleep but easily arouse. No obvious distress noted. Patient temp 99F , encouraged her to drink fluid. Patient refused to pass urine , she states that she is just not ready to passed urine. She denies having any pain or cramp to her abdomen .
--- NOTE | 2021-10-10 06:52 | NUR ---
Report received from Raven SAUER. Pt. visible on the unit resting with eyes closed. No distress noted. Staff will continue to monitor Q15 minutes for safety.
--- NOTE | 2021-10-10 08:14 | NUR ---
Breakfast tray provided.
--- NOTE | 2021-10-10 08:30 | NUR ---
Pt. refused physical assessment this shift.
[2021-10-10 08:44] LABS: URINE HCG NEGATIVE (NEG)
[2021-10-10 08:45] LABS: CLARITY,URINE CLOUDY (Clear); COLOR,URINE YELLOW (Yellow); GLUCOSE, URINE NEGATIVE (Neg); KETONES,URINE NEGATIVE (Neg); LEUKOCYTE ESTERASE ,URINE NEGATIVE (Neg); NITRITES, URINE NEGATIVE (Neg); OCCULT BLOOD,URINE NEGATIVE (Neg); PROTEIN,URINE NEGATIVE (Neg); UROBILINOGEN,URINE 0.2 E.U/dL (0.2-1.0)
[2021-10-10 08:49] LABS: UA COLLECTION TYPE CLN CATCH MIDSTREAM
[2021-10-10 08:50] LABS: MUCUS STRANDS MODERATE /LPF (Neg); SQUAMOUS EPITHELIAL CELL,UR MODERATE /LPF (FEW)
[2021-10-10 08:52] LABS: BACTERIA,URINE 2+ /HPF (Neg); RBC,URINE 0-2 /HPF (0-2); WBC,URINE 0-4 /HPF (0-4)
[2021-10-10] MEDS: ESCITALOPRAM OXALATE 5 MG TABLET PO SCH (08:58)
--- NOTE | 2021-10-10 10:40 | NUR ---
Pt. visible on the unit lying in bed resting quietly with eyes closed. No signs of distress noted. Staff will continue to monitor Q15 minutes for safety.
[2021-10-10 10:55] LABS: URINE AMPHETAMINE SCREEN POSITIVE (Neg); URINE BARBITUATE SCREEN NEGATIVE (Neg); URINE BENZODIAZEPINES SCREEN NEGATIVE (Neg); URINE CANNABINOID SCREEN NEGATIVE (Neg); URINE COCAINE SCREEN NEGATIVE (Neg); URINE METHADONE SCREEN NEGATIVE (Neg); URINE OPIATE SCREEN NEGATIVE (Neg); URINE PHENCYCLIDINE SCREEN NEGATIVE (Neg)
--- NOTE | 2021-10-10 12:39 | NUR ---
Pt. lying in bed quietly after eating lunch. Pt. denies any complaints at this time. Staff will continue to monitor Q15 minutes for safety.
--- NOTE | 2021-10-10 14:02 | NUR ---
Pt. lying in bed on left side resting quietly. Will maintain Q15 minutes safety checkes
--- NOTE | 2021-10-10 14:02 | NUR ---
Rylan carmona in [facility] - 10/10/21 at 1404 by ZOHREH Pt. lying in bed on left side resting quietly. Will maintain Q15 minutes safety checkes
--- NOTE | 2021-10-10 14:05 | NUR ---
Pt. visible on the unit in bed lying on her left side resting quietly. Staff will continue to monitor Q15 minutes for safety.
--- NOTE | 2021-10-10 16:27 | NUR ---
Pt is being evaluated by [facility].
--- NOTE | 2021-10-10 16:44 | NUR ---
This verse writer was informed by [facility] clinician that pt. current status of 5150 will be upheld.
--- NOTE | 2021-10-10 18:32 | NUR ---
Pt. eating dinner.
[2021-10-10] MEDS: olanzapine 10mg tablet PO SCH (21:32)
[2021-10-10] MEDS: prazosin 1mg capsule PO SCH (21:32)
[2021-10-10] MEDS: QUEtiapine 25mg tablet PO SCH (21:33)
--- NOTE | 2021-10-10 21:51 | NUR ---
Patient received on the unit in no obvious distress. No physical complaint made. Patient is breathing spontanously on room air. Patient states that she is still hearing voices , also that she is having suicidal ideation with no plan. Patient rates her anxiety 3/10 and depression 4/10
--- NOTE | 2021-10-10 21:55 | NUR ---
Patient got accepted at [facility]. She will be leaving tomorrow morning. Spoke with Da Garland RN in transport center.
--- NOTE | 2021-10-11 06:00 | NUR ---
Patient slept throughtout the night . No obnvious distress noted. Observation continues.
--- NOTE | 2021-10-11 07:00 | NUR ---
Pt. care assumed from Raven SAUER. Pt. resting with eyes closed no distress noted. Staff will continue q15 min. safety rounds.
[2021-10-11] MEDS: ESCITALOPRAM OXALATE 5 MG TABLET PO SCH (07:44)
--- NOTE | 2021-10-11 08:00 | NUR ---
Pt. SCHEDULED FOR DISCHARGE TO [facility] THIS MORNING. PT. ASSESSMENT COMPLETED. PT. COMPLIANT WITH MORNING MEDICATIONS. PT. CONTINUES TO STATES SI WITHOUT A PLAN. DENIES ANY CURRENT HI, A/V HALLUCINATIONS. BREAKFAST TRAY PROVIDED. STAFF WILL CONTINUE TO MONITOR FOR SAFETY.
--- NOTE | 2021-10-11 08:15 | NUR ---
FLATBED DRIVER ON UNIT AT THIS TIME. PT. ENCOURAGE TO VOID PRIOR TO TRANSPORT. FLATBED DRIVER GIVEN ORIGINAL 5150 AND PT. PERSONAL BELONGING AND MEDICATION THAT WERE RETURNED FROM [facility]OCK-[facility]. PT. ESCORTED OF THE UNIT WITH [employer]INE [employer] TECHNICIAN.
[2021-10-11 08:26] VITALS: BP 112/60
== END 2021-10-11 08:20 ==
LOC: ER 14:14
DX: R45.851 Suicidal ideations (principal); Z20.822 Contact with and (suspected) exposure to COVID-19; F20.9 Schizophrenia, unspecified; F32.A Depression, unspecified; F41.9 Anxiety disorder, unspecified; F15.90 Other stimulant use, unspecified, uncomplicated; Z98.890 Other specified postprocedural states; Z72.89 Other problems related to lifestyle; Z88.8 Allergy status to other drugs, medicaments and biological substances; Z79.899 Other long term (current) drug therapy
CPT/HCPCS: 36415; 80053; 80305; 80320; 81001; 81025; 84443; 85025; 87635; 93005; 99285; C9803

== ENCOUNTER 2023-04-17 16:20 | Emergency (ER) | payer MEDICARE, MEDICAID ==
[~2023-04-17] VITALS: Ht 154.9 cm; Wt 94.4 kg
[~2023-04-17 16:20] MED LIST changes: -ATI1T PO; +ESCI20TA PO; -ESCI20TA39 PO; +LORA-269 PO; -OLAN10TA73 PO; +OLAN20TA3 PO; -OSC500T PO; -PRAZ1CAP5 PO; +PRAZ2CAP2 PO; +QUET50TA PO; -TEMA15CA5 PO
[2023-04-17 16:38] VITALS: TEMP 97.3
[2023-04-17 17:14] LABS: BASOPHILS # (AUTO) 0.1 X10'3 (0-0.2); BASOPHILS % (AUTO) 1.2 % (0-1); EOSINOPHILS # (AUTO) 0.1 X10'3 (0-0.9); EOSINOPHILS % (AUTO) 1.4 % (0-6); HEMATOCRIT 41.7 % (35.0-45.0); HEMOGLOBIN 14.1 g/dl (12.0-16.0); LYMPHOCYTES # (AUTO) 2.2 X10'3 (1.1-4.8); LYMPHOCYTES % (AUTO) 35.4 % (21-51); MEAN CORPUSCULAR HEMOGLOBIN 29.5 PG (27.0-31.0); MEAN CORPUSCULAR HGB CONC 33.8 g/dL (33.0-36.5); MEAN CORPUSCULAR VOLUME 87.3 FL (78-98); MEAN PLATELET VOLUME 7.2 FL (7.4-10.4); MONOCYTES # (AUTO) 0.5 X10'3 (0-0.9); MONOCYTES % (AUTO) 8.7 % (2-12); NEUTROPHILS # (AUTO) 3.3 X10'3 (1.8-7.7); NEUTROPHILS % (AUTO) 53.3 % (42-75); PLATELET COUNT 319 X10'3 (140-440); RED BLOOD COUNT 4.78 X10'6 (4.20-5.60); RED CELL DISTRIBUTION WIDTH 12.8 % (11.5-14.5); WHITE BLOOD COUNT 6.2 X10'3 (4.5-11.0)
--- NOTE | 2023-04-17 17:40 | NUR ---
ATTEMPTED TO PLACE PT IN A ROOM - WAS TOLD SHE NEEDED TO MAKE AN IMPORTANT PHONE CALL AND WOULD BE BACK IN 5 MINS
[2023-04-17 17:44] LABS: ALANINE AMINOTRANSFERASE 37 U/L (12-78); ALBUMIN 3.9 G/DL (3.4-5.0); ALKALINE PHOSPHATASE 103 IU/L (46-116); ANION GAP 10 (8-16); ASPARTATE AMINO TRANSFERASE 31 U/L (10-37); BILIRUBIN,TOTAL 0.2 MG/DL (0.1-1.0); BLOOD UREA NITROGEN 11 MG/DL (7-18); BUN/CREATININE RATIO 12.9 (10.0-20.0); CALCIUM 8.8 MG/DL (8.5-10.1); CHLORIDE 102 MMOL/L (99-107); CREATININE 0.85 MG/DL (0.40-0.90); GLUCOSE 93 MG/DL (70-104); LIPASE 534 U/L (73-393); POTASSIUM 3.9 MMOL/L (3.5-5.1); SODIUM 139 MMOL/L (135-145); TOTAL CARBON DIOXIDE 27.2 MMOL/L (24-32); eCRCL 65 ML/MIN; eGFR 73 ML/MIN
[2023-04-17] MEDS ORDERED: normal saline 1000ml 1,000 ML IV ONE (19:25)
[2023-04-17] MEDS ORDERED: iohexol 300mg/ml 100ml inj. ONE (19:27)
[2023-04-17 19:32] LABS: BILIRUBIN,URINE NEGATIVE (Neg); CLARITY,URINE CLEAR (Clear); COLOR,URINE YELLOW (Yellow); GLUCOSE, URINE NEGATIVE (Neg); KETONES,URINE NEGATIVE (Neg); LEUKOCYTE ESTERASE ,URINE NEGATIVE (Neg); NITRITES, URINE NEGATIVE (Neg); OCCULT BLOOD,URINE NEGATIVE (Neg); PROTEIN,URINE NEGATIVE (Neg); UA COLLECTION TYPE CLN CATCH MIDSTREAM; URINE HCG NEGATIVE (NEG); UROBILINOGEN,URINE 0.2 E.U/dL (0.2-1.0)
[2023-04-17 20:53] VITALS: BP 129/82; PULSE 80; RESP 16; O2SAT 100
== END 2023-04-17 20:55 | disposition home or self-care (01) ==
LOC: ER 16:21
DX: K85.90 Acute pancreatitis without necrosis or infection, unspecified (principal); F15.90 Other stimulant use, unspecified, uncomplicated; Z88.8 Allergy status to other drugs, medicaments and biological substances; Z79.899 Other long term (current) drug therapy
CPT/HCPCS: 36415; 74177; 80053; 81003; 81025; 83690; 85025; 96360; 99285; J3490; J7030; Q9967

== ENCOUNTER 2023-07-12 19:12 | Emergency (ER) | payer MEDICARE, MEDICAID ==
[~2023-07-12] VITALS: Ht 154.9 cm; Wt 95.5 kg
[2023-07-12 19:53] VITALS: BP 124/84; PULSE 87; RESP 16; TEMP 98.1; O2SAT 99
[2023-07-12] MEDS ORDERED: SULF1TAB49 PO (19:56)
== END 2023-07-12 20:00 | disposition home or self-care (01) ==
LOC: ER 19:13
DX: L03.113 Cellulitis of right upper limb (principal); F15.90 Other stimulant use, unspecified, uncomplicated
CPT/HCPCS: 99283

== ENCOUNTER 2024-01-20 10:21 | Outpatient (CLI) | payer MEDICARE, MEDICAID | END 2024-01-20 23:59 | disposition home or self-care (01) | LOC: RAD 10:21 | PROVIDERS: ATTEND Family Medicine | DX: M25.521 Pain in right elbow (principal) | CPT/HCPCS: 73080 ==

== ENCOUNTER 2024-03-13 13:01 | Emergency (ER) | payer MEDICARE, MEDICAID ==
[2024-03-13 13:32] VITALS: TEMP 98.6
[2024-03-13] MEDS: HYDROcodone/acetaminophen 10/325mg tab PO ONE (17:23)
[2024-03-13 17:55] LABS: BASOPHILS # (AUTO) 0.1 X10'3 (0-0.2); BASOPHILS % (AUTO) 0.9 % (0-1); EOSINOPHILS # (AUTO) 0.2 X10'3 (0-0.9); EOSINOPHILS % (AUTO) 2.3 % (0-6); HEMATOCRIT 38.4 % (35.0-45.0); HEMOGLOBIN 12.5 g/dl (12.0-16.0); LYMPHOCYTES # (AUTO) 2.6 X10'3 (1.1-4.8); MEAN CORPUSCULAR HEMOGLOBIN 28.7 PG (27.0-31.0); MEAN CORPUSCULAR HGB CONC 32.6 g/dL (33.0-36.5); MONOCYTES # (AUTO) 0.6 X10'3 (0-0.9); MONOCYTES % (AUTO) 7.5 % (2-12); NEUTROPHILS # (AUTO) 4.4 X10'3 (1.8-7.7); NEUTROPHILS % (AUTO) 56.3 % (42-75); PLATELET COUNT 319 X10'3 (140-440); RED BLOOD COUNT 4.36 X10'6 (4.20-5.60); RED CELL DISTRIBUTION WIDTH 13.9 % (11.5-14.5); WHITE BLOOD COUNT 7.9 X10'3 (4.5-11.0)
[2024-03-13 18:10] LABS: APTT 23 SECONDS (22-32); PROTHROMBIN TIME 9.3 SECONDS (9.0-12.0)
[2024-03-13 18:16] LABS: ALANINE AMINOTRANSFERASE 41 U/L (12-78); ALBUMIN 3.2 G/DL (3.4-5.0); ALBUMIN/GLOBULIN RATIO 0.8 (1.1-1.5); ALKALINE PHOSPHATASE 113 IU/L (46-116); ANION GAP 5 (8-16); ASPARTATE AMINO TRANSFERASE 25 U/L (10-37); BILIRUBIN,TOTAL 0.2 MG/DL (0.1-1.0); BLOOD UREA NITROGEN 17 MG/DL (7-18); BUN/CREATININE RATIO 22.7 (10.0-20.0); CALCIUM 8.8 MG/DL (8.5-10.1); CHLORIDE 105 MMOL/L (99-107); CREATININE 0.75 MG/DL (0.40-0.90); GLUCOSE 82 MG/DL (70-104); POTASSIUM 4.3 MMOL/L (3.5-5.1); SODIUM 140 MMOL/L (135-145); TOTAL CARBON DIOXIDE 29.6 MMOL/L (24-32); TOTAL PROTEIN 7.4 G/DL (6.4-8.2); eGFR 84 ML/MIN
[2024-03-13 18:18] LABS: INR 0.9 INR
[2024-03-13] MEDS: ondansetron/PF 4mg/2ml inj IV ONE (18:40)
[2024-03-13] MEDS: ketorolac trometh. 30mg/ml inj. IV ONE (18:40)
[2024-03-13] MEDS: CefTRIAXone/D5W-Rocephin 1gm 50 ML IV STA (18:48)
[2024-03-13 19:00] VITALS: BP 117/79; PULSE 69; RESP 14; O2SAT 98
[2024-03-13] MEDS ORDERED: SULF1TAB49 PO (19:05)
[2024-03-13] MEDS: clindamycin 600mg/D5W 50ml 50 ML IV STA (19:31)
[2024-03-13] MEDS: CLINDAMYCIN 600mg IN NS 50ML 50 ML IV STA (19:46)
[2024-03-13] MEDS: ibuprofen tablet 400 MG TABLET PO ONE (19:51)
== END 2024-03-13 20:00 | disposition home or self-care (01) ==
LOC: ER 13:01
DX: L03.314 Cellulitis of groin (principal); R79.1 Abnormal coagulation profile; Z88.8 Allergy status to other drugs, medicaments and biological substances; Z79.899 Other long term (current) drug therapy
CPT/HCPCS: 36415; 80053; 83605; 84145; 85025; 85610; 85730; 87040; 96365; 96367; 99284; J0696; J3490

== ENCOUNTER 2024-03-15 16:26 | Emergency (ER) | payer MEDICARE, MEDICAID ==
[~2024-03-15] VITALS: Ht 154.9 cm; Wt 98.0 kg
[~2024-03-15 16:26] MED LIST changes: +SULF1TAB49 PO
[2024-03-15 16:37] VITALS: BP 145/73; PULSE 91; TEMP 97.1; O2SAT 98
[2024-03-15 18:27] VITALS: RESP 18
[2024-03-15] MEDS: HYDROcodone/acetaminophen 10/325mg tab PO ONE (18:27)
[2024-03-15] MEDS: LIDOcaine/epinephrine/tetracaine TOPICAL sol 3 ML syringe TOP ONE (18:28)
[2024-03-15] MEDS: LIDOcaine 1% W/epiNEPHrine 1:100,000 20ml vial SQ ONE (18:28)
== END 2024-03-15 19:18 | disposition home or self-care (01) ==
LOC: ER 16:27
DX: L73.2 Hidradenitis suppurativa (principal); F15.90 Other stimulant use, unspecified, uncomplicated; Z88.8 Allergy status to other drugs, medicaments and biological substances; Z79.899 Other long term (current) drug therapy; Z79.2 Long term (current) use of antibiotics
CPT/HCPCS: 10060; 99284; A6266; J3490; Z7610; A6449

== ENCOUNTER 2024-03-17 15:35 | Emergency (ER) | payer MEDICARE, MEDICAID ==
[~2024-03-17] VITALS: Ht 154.9 cm; Wt 95.0 kg
[2024-03-17 16:42] VITALS: BP 119/77; PULSE 89; RESP 16; TEMP 97.9; O2SAT 99
== END 2024-03-17 16:43 | disposition home or self-care (01) ==
LOC: ER 15:36
DX: L73.2 Hidradenitis suppurativa (principal); Z88.8 Allergy status to other drugs, medicaments and biological substances; Z79.899 Other long term (current) drug therapy; Z79.2 Long term (current) use of antibiotics
CPT/HCPCS: 71045; 99284

== ENCOUNTER 2024-04-19 19:40 | Emergency (ER) | payer MEDICARE, MEDICAID ==
[~2024-04-19] VITALS: Ht 154.9 cm; Wt 95.5 kg
[~2024-04-19 19:40] MED LIST changes: -SULF1TAB49 PO
[2024-04-19 23:30] LABS: BASOPHILS % (AUTO) 0.7 % (0-1); EOSINOPHILS # (AUTO) 0.2 X10'3 (0-0.9); EOSINOPHILS % (AUTO) 2.5 % (0-6); HEMATOCRIT 41.9 % (35.0-45.0); HEMOGLOBIN 13.8 g/dl (12.0-16.0); LYMPHOCYTES # (AUTO) 2.7 X10'3 (1.1-4.8); LYMPHOCYTES % (AUTO) 39.3 % (21-51); MEAN CORPUSCULAR HEMOGLOBIN 28.6 PG (27.0-31.0); MEAN CORPUSCULAR HGB CONC 32.9 g/dL (33.0-36.5); MEAN CORPUSCULAR VOLUME 86.8 FL (78-98); MEAN PLATELET VOLUME 7.1 FL (7.4-10.4); MONOCYTES # (AUTO) 0.6 X10'3 (0-0.9); MONOCYTES % (AUTO) 8.5 % (2-12); NEUTROPHILS # (AUTO) 3.3 X10'3 (1.8-7.7); PLATELET COUNT 357 X10'3 (140-440); RED BLOOD COUNT 4.82 X10'6 (4.20-5.60); RED CELL DISTRIBUTION WIDTH 13.7 % (11.5-14.5); WHITE BLOOD COUNT 6.8 X10'3 (4.5-11.0)
[2024-04-19 23:42] LABS: APTT 29 SECONDS (22-32); PROTHROMBIN TIME 10.3 SECONDS (9.0-12.0)
[2024-04-19 23:43] LABS: ALANINE AMINOTRANSFERASE 40 U/L (12-78); ALBUMIN 3.6 G/DL (3.4-5.0); ALBUMIN/GLOBULIN RATIO 0.9 (1.1-1.5); ALKALINE PHOSPHATASE 104 IU/L (46-116); ANION GAP 10 (8-16); ASPARTATE AMINO TRANSFERASE 35 U/L (10-37); BILIRUBIN,TOTAL 0.2 MG/DL (0.1-1.0); BLOOD UREA NITROGEN 13 MG/DL (7-18); BUN/CREATININE RATIO 17.6 (10.0-20.0); CHLORIDE 104 MMOL/L (99-107); CREATININE 0.74 MG/DL (0.40-0.90); GLUCOSE 87 MG/DL (70-104); LIPASE 31 U/L (16-77); POTASSIUM 3.3 MMOL/L (3.5-5.1); SODIUM 142 MMOL/L (135-145); TOTAL CARBON DIOXIDE 28.2 MMOL/L (24-32); TOTAL PROTEIN 7.5 G/DL (6.4-8.2); eCRCL 74 ML/MIN; eGFR 86 ML/MIN
[2024-04-20 01:37] VITALS: TEMP 98.4
[2024-04-20 02:16] VITALS: BP 138/82; PULSE 88; RESP 19; O2SAT 100
== END 2024-04-20 02:40 | disposition home or self-care (01) ==
LOC: ER 19:41
DX: K62.5 Hemorrhage of anus and rectum (principal); F32.A Depression, unspecified; F20.9 Schizophrenia, unspecified; F15.90 Other stimulant use, unspecified, uncomplicated; Z72.89 Other problems related to lifestyle; Z88.8 Allergy status to other drugs, medicaments and biological substances; Z79.899 Other long term (current) drug therapy
CPT/HCPCS: 36415; 71045; 80053; 83690; 85025; 85610; 85730; 86885; 86900; 86901; 93005; 99285